=== PATIENT | male | born 1995 | race American Indian/Alaskan Native ===

== ENCOUNTER 2017-03-25 18:49 | Emergency (ER) | payer BC ==
[2017-03-25 20:21] VITALS: BP 153/110
--- NOTE | 2017-03-25 22:46 | Emergency Department Report ---
Upper Extremity - HPI Chief Complaint: Extremity Injury, Upper Stated Complaint: INJURY ON LEFT HAND,MIDDLE FINGER Time Seen by Provider: 03/25/17 22:28 Upper Extremity: Left Middle Finger (distal left middle finger laceration) Occurred When: 2 Days Severity: moderate Symptoms: Yes Deformity, Yes Bruising/Ecchymosis, Yes Laceration or Abrasion ( vertical laceration distal left middle finger tip, slightly into middle of nail bed), No Pain with Movement, No Limited Range of Movement, No Numbness, No Weakness, No Swelling Other History: 21-year-old male presents with complaint of injury to the distal fingertip 2 days ago. Patient states he cut the tip of his fingertip using a table saw. Patient is unaware of tetanus status. Visible damage to edge of nail bed. Denies any fevers chills or pus drainage from finger. Denies any other injuries ED Review of Systems ROS: Stated complaint: INJURY ON LEFT HAND,MIDDLE FINGER Other details as noted in HPI Constitutional: denies: chills, fever Eyes: denies: eye pain, eye discharge, vision change ENT: denies: ear pain, throat pain Respiratory: denies: cough, shortness of breath, wheezing Cardiovascular: denies: chest pain, palpitations Endocrine: no symptoms reported Gastrointestinal: denies: abdominal pain, nausea, diarrhea Genitourinary: denies: urgency, dysuria Musculoskeletal: denies: back pain, joint swelling, arthralgia Skin: denies: rash, lesions Neurological: denies: headache, weakness, paresthesias Psychiatric: denies: anxiety, depression Hematological/Lymphatic: denies: easy bleeding, easy bruising ED Past Medical Hx - Past Medical History Previous Medical History?: Yes Hx Hypertension: Yes - Surgical History Past Surgical History?: No - Social History Smoking Status: Never Smoker Substance Use Type: Marijuana - Medications Home Medications: Home Medications Medication Instructions Recorded Confirmed Last Taken Type Ibuprofen [Motrin] 600 mg PO Q8H PRN #25 tablet 03/25/17 Unknown Rx Sulfamethoxazole/Trimethoprim 1 each PO BID #14 tablet 03/25/17 Unknown Rx [Bactrim DS TAB] Upper Extremity Exam - Exam General: Vital signs noted. No distress. Alert and acting appropriately. Head and Torso: No HEENT Abnormality, No Neck Tenderness, No Chest/Lungs Abnormality, No Abdominal Tenderness, No Back Tenderness Shoulder Exam: Yes Normal Range of Motion in Shoulder, No Shoulder Tenderness, No Clavicle Tenderness, No Shoulder Deformity, No AC Joint Tenderness Arm Exam: No Arm/Humerus Tenderness, No Arm Deformity Elbow: No Elbow Tenderness, No Normal Range of Motion in Elbow, No Elbow Deformity Forearm: No Forearm Tenderness, No Forearm Deformity, No Pain with Pronation, No Pain with Supination Wrist: Yes Normal ROM in Wrist, No Wrist Tenderness, No Wrist Deformity, No Snuffbox Tenderness, No Pain with Axial Thumb Compression Hand: Yes Digit Tenderness (distal left middle finger sensitivity/tenderness at edge of nail but), Yes Normal ROM in Digit(s), No Hand Tenderness, No Hand Deformity, No Digit(s) Deformity, No Tendon Dysfunction CMS Exam: Yes Normal Capillary Refill (distal capillary refill less than one second all fingers including middle finger), No Broken Skin, No Normal Distal Pulses, No Normal Distal Sensation Hand L/R Back: 1 - Damage to nail bed here distal laceration to fingertip ED Course Vital Signs 03/25/17 03/25/17 20:18 20:28 Temperature 99.1 F 99.1 F Pulse Rate 80 80 Respiratory 20 18 Rate Blood Pressure 153/110 Blood Pressure 153/110 [Right] O2 Sat by Pulse 100 100 Oximetry ED Medical Decision Making - Medical Decision Making A/P: Fingertip laceration, nail bed laceration 1-Keflex and Bactrim twice a day 7 days 2-fingertip wrapped with Xeroform gauze and then dry gauze and finger splint applied externally 3-as laceration occurred nearly 48 hours ago there is no indication for suturing at this time due to reepithelialization 4- x-ray shows no fracture 5- I advised patient to return for any fevers chills significant erythema at site of injury or pus drainage. 6-partial injury to distal edge of nail bed but area is less than 25% of nail bed. No subungual hematoma. Critical care attestation.: If time is entered above; I have spent that time in minutes in the direct care of this critically ill patient, excluding procedure time. ED Disposition Clinical Impression: Finger laceration Qualifiers: Encounter type: initial encounter Finger: middle finger Damage to nail status: with damage Foreign body presence: without foreign body Laterality: left Qualified Code(s): S61.313A - Laceration without foreign body of left middle finger with damage to nail, initial encounter Disposition: TO HOME OR SELFCARE Is pt being admited?: No Does the pt Need Aspirin: No Condition: Stable Instructions: Laceration (ED), Finger Laceration (ED), Acute Wound Care (ED) Prescriptions: Ibuprofen [Motrin] 600 mg PO Q8H PRN #25 tablet PRN Reason: Pain Sulfamethoxazole/Trimethoprim [Bactrim DS TAB] 1 each PO BID #14 tablet Forms: Work/School Release Form(ED) Time of Disposition: 23:44
[2017-03-25] MEDS ORDERED: TRIPLE ANTIBIOTIC TP ONE (22:47)
[2017-03-25] MEDS ORDERED: MOTRIN PO ONE (22:47)
[2017-03-25] MEDS ORDERED: BOOSTRIX IM ONE (22:47)
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
== END 2017-03-26 00:01 | disposition home or self-care (01) ==
LOC: ED 18:49
DX: S61.313A Laceration without foreign body of left middle finger with damage to nail, initial encounter (principal); I10 Essential (primary) hypertension; F12.10 Cannabis abuse, uncomplicated; W45.8XXA Other foreign body or object entering through skin, initial encounter; Y93.9 Activity, unspecified; Y92.9 Unspecified place or not applicable; Y99.9 Unspecified external cause status
CPT/HCPCS: 90471; 90715; 99283; A6250